=== PATIENT | female | born 1965 | race Caucasian/White ===

== ENCOUNTER 2019-02-09 02:47 | Emergency (ER) | payer OTHER ==
--- NOTE | 2019-02-09 02:51 | PDOC ---
History of Present Illness - General Chief Complaint: Chest Pain Stated Complaint: CHEST PAIN Time Seen by Provider: 02/09/19 02:49 History Source: Patient Exam Limitations: No Limitations - History of Present Illness Initial Comments: 02/09/19 02:51 HPI 53 YOF with no significant medical history presenting with acute onset of left sided chest pain that woke her up from sleep ~30min TUM[employer]. Pt describes left sided chest pain was localized, "sharp," and lasting 5 minutes and self resolving. Associated with left arm numbness from the biceps down, but does not recall the symptoms are radiating. chest pain has since resolved, still has some numbness to her left arm; denies exacerbating or alleviating factors. no history of similar sx. she is active and healthy, exercises daily and eats healthy. denies trauma or heavy lifting. Denies fever, chills, SOB, palpitation, dizziness, weakness, N, V, D, abdominal pain, bladder and bowel problems, leg swelling, rash. No sick contacts or travel. No new changes in medications. No suspicious food intake Allergies: None Past Medical History/PSH: lumpectomy for breast mass. Social history: Lives with family. No tobacco, ETOH or drug use. Meds: estrogen patch Family history: no heart disease, CAD [place] Review of systems Constitutional: no fevers or chills. No weakness HEENT: no headache or dizziness. No congestion. No visual/hearing disturbances. CVS: no syncope. +chest pain. Resp: no sob. No cough. Gastrointestinal: no abdominal pain, nausea or vomiting. Genitourinary: no urinary sx, hematuria. MUSCULOSKELETAL: No joint pain and swelling. No neck or back pain. SKIN: no redness or skin changes, no discharge, no rash. No wounds. Hematologic: no easy bruising/bleeding. NEUROLOGIC: No headache, dizziness, LOC or altered mental status. No focal weakness, tingling. +numbness. Psych: no anxiety or depression Allergic/Immunologic: no allergies All other systems reviewed and negative, or as documented in HPI. Physical exam General: Well appearing, awake and alert, NAD. HEENT: NCAT, PERRL, EOMI, clear conjunctiva, anicteric, moist mucus membranes, clear oropharynx, no oral lesions.. Neck: neck supple, FROM Resp: CTAB, normal and even respirations, no respiratory distress CVS: RRR, no murmurs, 2+ peripheral pulses throughout, no peripheral edema Chest: no chest wall tenderness Abdomen: soft, NTND, no rebound or guarding. No CVAT. Back: nontender, normal inspection and ROM MSK: no edema, ORNELAS x4, ROM intact. No clubbing or cyanosis. normal bulk and tone. Extremities: no calf tenderness Neuro: alert, oriented appropriately; no focal neurologic deficits; 5/5 prox and distal upper extremity strength, no drift. 5/5 shoulder shrung. 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 SILT in BUE and BLE Psych: Calm and cooperative Skin: warm and well perfused, cap refill <2 sec, normal color 02/09/19 03:37 02/09/19 03:50 Past History - Past Medical History Allergies/Adverse Reactions: Allergies Allergy/AdvReac Type Severity Reaction Status Date / Time No Known Allergies Allergy Verified 02/09/19 02:48 Home Medications: Ambulatory Orders Estradiol 0.05 mg DAILY 02/09/19 Progesterone, Micronized [Progesterone] 100 mg PO DAILY 02/09/19 Anemia: No Asthma: No Cancer: No Cardiac Disorders: No CVA: No COPD: No CHF: No Dementia: No Diabetes: No GI Disorders: No Disorders: No HTN: No Hypercholesterolemia: No Liver Disease: No Seizures: No Thyroid Disease: No - Surgical History Abdominal Surgery: Yes Appendectomy: No Cardiac Surgery: No Cholecystectomy: No Lung Surgery: No Neurologic Surgery: No Orthopedic Surgery: No - Psycho Social/Smoking Cessation Hx Smoking History: Never smoked Have you smoked in the past 12 months: No Hx Alcohol Use: No Drug/Substance Use Hx: No Substance Use Type: None Hx Substance Use Treatment: No Cardiac Specific PMH - Complaint Specific PMHX Pacemaker: No *Physical Exam - Vital Signs Last Vital Signs Temp Pulse Resp BP Pulse Ox 97.5 F L 52 L 15 93/62 99 02/09/19 02:53 02/09/19 08:00 02/09/19 08:00 02/09/19 08:00 02/09/19 08:00 Heart Score/ECG Review - History History: Slightly suspicious - Electrocardiogram EKG: Normal - Age Age: 45-65 - Risk Factors Based on the list above the patient has:: No risk factors known - Troponin Troponin: </= normal limit - Score Heart Score - Total: 1 #1 ECG reviewed & interpreted by me at: 02:50 General ECG Interpretation: Sinus Rhythm, Normal Rate, Normal Intervals, No acute ischemic changes Compared to previous ECG there are: Previous ECG unavail ED Treatment Course - LABORATORY CBC & Chemistry Diagram: 02/09/19 03:00 02/09/19 03:00 - ADDITIONAL ORDERS Additional order review: Laboratory Results 02/09/19 06:00 Troponin I < 0.02 02/09/19 03:00 RBC 4.13 MCV 90.3 MCHC 34.3 RDW 13.5 MPV 7.9 Neutrophils % 38.9 L Lymphocytes % 48.0 H Monocytes % 8.5 Eosinophils % 3.3 Basophils % 1.3 Medical Decision Making - Medical Decision Making 02/09/19 03:49 Vital Signs Temp Pulse Resp BP Pulse Ox 97.5 F L 54 L 16 105/73 100 02/09/19 02:53 02/09/19 02:53 02/09/19 02:53 02/09/19 02:53 02/09/19 02:53 DDx chest pain: ACS, coronary vasospasm, NSTEMI, arrhythmia, unstable angina, PE , dissection, PUD, esophageal spasm, GERD, gastritis, costochondritis, pneumonia , pleurisy, pericarditis/myocarditis. dehydration, electrolyte/metabolic derangements. Considered but clinically doubt based on HPI and PE: PE or dissection. no rash to suggest zoster. EKG is NSR and no ST T wave derangements. HEART score is 1, low risk for MACE at 4-6 weeks, <1.7% trend 2 trops, initial neg. remainder of labs and lytes wnl tele monitor with sinus bradycardia 40-50s, other benjamin healthy female, very active so can have patricia. 02/09/19 06:40 no events, sleeping in room comfortable repeat EKG unchanged trop pending if neg, anticipate PCP followup outpatient, return precautions and reassurance 02/09/19 18:47 Discharge - Discharge Information Problems reviewed: Yes Clinical Impression/Diagnosis: Chest pain Qualifiers: Chest pain type: unspecified Qualified Code(s): R07.9 - Chest pain, unspecified Condition: Stable Disposition: HOME - Admission No - Follow up/Referral Referrals: Bert Barfield MD [Staff Physician] - Manan Ramos MD [Non Staff, Medical] - Chris Avila MD [Non Staff, Medical] - David Us MD [Staff Physician] - - Patient Discharge Instructions Patient Printed Discharge Instructions: DI for Chest Pain Additional Instructions: follow up with primary care doctor regarding your symptoms avoid stressors. rest well if worsening symptoms of chest pain, radiating down jaw neck or arm, neurologic changes, respiratory distress, pain, passing out, dehydration, infection or other worsening symptoms return sooner. - Post Discharge Activity
[2019-02-09 02:56] VITALS: TEMP 97.5; BMI 19.8
[2019-02-09 03:39] LABS: BASO % 1.3 % (0-2.0); EOS % 3.3 % (0-4.5); HEMATOCRIT 37.2 % (32.4-45.2); HEMOGLOBIN 12.8 GM/dL (10.7-15.3); MCHC 34.3 g/dl (32.0-36.0); MEAN CELL VOLUME 90.3 fl (80-96); MEAN PLT VOLUME 7.9 fl (7.5-11.1); MONO % 8.5 % (3.8-10.2); NEUT % 38.9 % (42.8-82.8); PLATELET COUNT 299 K/MM3 (134-434); RBC 4.13 M/mm3 (3.60-5.2); RDW 13.5 % (11.6-15.6); WHITE BLOOD COUNT 4.7 K/mm3 (4.0-10.0)
[2019-02-09 04:08] LABS: ALBUMIN 3.6 g/dl (3.4-5.0); ALK PHOS 83 U/L (45-117); ANION GAP 7 MMOL/L (8-16); BILIRUBIN,TOTAL 0.4 mg/dL (0.2-1); BLOOD UREA NITROGEN 21.8 mg/dL (7-18); CALCIUM 8.2 mg/dL (8.5-10.1); CHLORIDE 110 mmol/L (98-107); CO2 26 mmol/L (21-32); CREATININE 0.9 mg/dL (0.55-1.3); GLUCOSE,RANDOM 88 mg/dL (74-106); POTASSIUM 4.1 mmol/L (3.5-5.1); SGOT/AST 28 U/L (15-37); SGPT/ALT 21 U/L (13-61); SODIUM 143 mmol/L (136-145); TOT PROT 6.3 g/dl (6.4-8.2)
[2019-02-09 08:06] VITALS: BP 93/62; PULSE 52
--- NOTE | 2019-02-09 08:06 | PDOC ---
*Physical Exam - Vital Signs Last Vital Signs Temp Pulse Resp BP Pulse Ox 97.5 F L 56 L 20 103/60 99 02/09/19 02:53 02/09/19 06:09 02/09/19 06:09 02/09/19 06:09 02/09/19 06:09 - Physical Exam Comments: 02/09/19 08:04 Vital signs normal, heart rate 50 and sinus, blood pressure normal, O2 sat 100% on room air, normal respiratory rate. Comfortable lying in stretcher, speaking full sentences Asymptomatic at this time, cardiopulmonary exam is normal ED Treatment Course - LABORATORY CBC & Chemistry Diagram: 02/09/19 03:00 02/09/19 03:00 - ADDITIONAL ORDERS Additional order review: Laboratory Results 02/09/19 02/09/19 06:00 03:00 Sodium 143 Potassium 4.1 Chloride 110 H Carbon Dioxide 26 Anion Gap 7 L BUN 21.8 H Creatinine 0.9 Est GFR (CKD-EPI)AfAm 85.20 Est GFR (CKD-EPI)NonAf 73.51 Random Glucose 88 Calcium 8.2 L Magnesium 2.0 Total Bilirubin 0.4 AST 28 ALT 21 Alkaline Phosphatase 83 Creatine Kinase 136 Troponin I < 0.02 < 0.02 Total Protein 6.3 L Albumin 3.6 02/09/19 03:00 RBC 4.13 MCV 90.3 MCHC 34.3 RDW 13.5 MPV 7.9 Neutrophils % 38.9 L Lymphocytes % 48.0 H Monocytes % 8.5 Eosinophils % 3.3 Basophils % 1.3 Medical Decision Making - Medical Decision Making 02/09/19 08:05 Received signout on this healthy and very active 53-year-old female who is an avid runner who for the first time developed left chest discomfort while asleep , lasted for 5 minutes and was atypical in nature, presented for evaluation. Workup including labs and EKG 2 were normal, chest x-ray was not indicated. Plan at sign out was to check second troponin, discharge if negative. Troponin 2 negative, patient remains asymptomatic, heart score is 1, will obtain outpatient PCP follow-up with cardiac evaluation, understands strict return criteria, friend at bedside. Discharge - Discharge Information Problems reviewed: Yes Clinical Impression/Diagnosis: Chest pain Qualifiers: Chest pain type: unspecified Qualified Code(s): R07.9 - Chest pain, unspecified Condition: Stable Disposition: HOME - Follow up/Referral Referrals: Manan Ramos MD [Non Staff, Medical] - Bert Barfield MD [Staff Physician] - Chris Avila MD [Non Staff, Medical] - David Us MD [Staff Physician] - - Patient Discharge Instructions Patient Printed Discharge Instructions: DI for Chest Pain Additional Instructions: follow up with primary care doctor regarding your symptoms avoid stressors. rest well if worsening symptoms of chest pain, radiating down jaw neck or arm, neurologic changes, respiratory distress, pain, passing out, dehydration, infection or other worsening symptoms return sooner. - Post Discharge Activity
--- NOTE | 2019-02-09 13:13 | EKG ---
Test Reason : Blood Pressure : / mmHG Vent. Rate : 056 BPM Atrial Rate : 056 BPM P-R Int : 178 ms QRS Dur : 086 ms QT Int : 474 ms P-R-T Axes : 037 086 048 degrees QTc Int : 457 ms SINUS BRADYCARDIA OTHERWISE NORMAL ECG WHEN COMPARED WITH ECG OF 09-FEB-2019 02:51, NO SIGNIFICANT CHANGE WAS FOUND Confirmed by JUANA VIEYRA MD ([id number]) on 02/09/2019 1:12:51 PM Referred By: DR FULLER Confirmed By:JUANA VIEYRA MD
--- NOTE | 2019-02-09 13:13 | EKG ---
Test Reason : Blood Pressure : / mmHG Vent. Rate : 051 BPM Atrial Rate : 051 BPM P-R Int : 180 ms QRS Dur : 088 ms QT Int : 484 ms P-R-T Axes : 055 079 053 degrees QTc Int : 446 ms SINUS BRADYCARDIA OTHERWISE NORMAL ECG NO PREVIOUS ECGS AVAILABLE Confirmed by JUANA VIEYRA MD ([id number]) on 02/09/2019 1:13:00 PM Referred By: DR FULLER Confirmed By:JUANA VIEYRA MD
== END 2019-02-09 08:11 | disposition home or self-care (01) ==
LOC: FER 02:47
DX: R07.9 Chest pain, unspecified (principal)
CPT/HCPCS: 36415; 80053; 82550; 83735; 84484; 85025; 93005; 99283-25